=== PATIENT | male | born 1975 | race Caucasian/White ===

== ENCOUNTER 2019-03-23 10:20 | Emergency (ER) | payer MEDICAID, OTHER ==
[~2019-03-23] VITALS: Ht 170.2 cm; Wt 124.7 kg
[~2019-03-23 10:20] MED LIST: CARB200T PO; CEPH500C2 PO; PHEN100C4 PO
[2019-03-23] MEDS ORDERED: IBUP-1957 PO (10:37)
[2019-03-23] MEDS ORDERED: METF-442 PO (10:37)
[2019-03-23] MEDS ORDERED: TOPI50TA PO (10:37)
[2019-03-23] MEDS ORDERED: CARB200T PO (10:37)
--- NOTE | 2019-03-23 10:52 | NUR ---
[employer] AT BEDSIDE FOR MSE.
[2019-03-23] MEDS ORDERED: AZITHROMYCIN 250 MG TABLET ONE (12:03)
[2019-03-23] MEDS ORDERED: predniSONE 50 MG TABLET ONE (12:03)
[2019-03-23] MEDS: AZITHROMYCIN 250 MG TABLET PO ONE (12:05)
[2019-03-23] MEDS: predniSONE 50 MG TABLET PO ONE (12:05)
[2019-03-23 12:06] VITALS: BP 122/96
--- NOTE | 2019-03-23 12:10 | NUR ---
Patient discharged to home in stable conditon. Written and verbal after care instructions given. Patient verbalizes understanding of instructions. ALL BELONGINGS W/ PT. PT SELF-AMBULATED W/O DIFFICULTY.
== END 2019-03-23 12:10 | disposition home or self-care (01) ==
LOC: ER 10:20
DX: I88.9 Nonspecific lymphadenitis, unspecified (principal); R11.0 Nausea; R05 Cough; R50.9 Fever, unspecified; E11.9 Type 2 diabetes mellitus without complications; F41.9 Anxiety disorder, unspecified; Z79.1 Long term (current) use of non-steroidal anti-inflammatories (NSAID); Z79.899 Other long term (current) drug therapy
CPT/HCPCS: 71045; A4663; J7512; Q0144